=== PATIENT | female | born 1970 | race Caucasian/White ===

== ENCOUNTER 2016-08-04 19:19 | Emergency (ER) | payer MEDICAID, MEDICARE ==
[~2016-08-04] VITALS: Ht 172.7 cm; Wt 88.4 kg
[2016-08-04] MEDS ORDERED: SODIUM CHLORIDE 0.9% 1,000ML IVBOLUS ONE (20:00)
[2016-08-04] MEDS ORDERED: IBUPROFEN 200 MG TABLET PO ONE (20:00)
[2016-08-04] MEDS ORDERED: ALBUTEROL/IPRATROPIUM 2.5MG/0.5MG, 3 ML ONE ×2 (20:09→23:00)
[2016-08-04] MEDS: ALBUTEROL/IPRATROPIUM 2.5MG/0.5MG, 3 ML NPPB SCH ×2 (20:19→23:06)
[2016-08-04 20:44] LABS: BLOOD UREA NITROGEN 3 mg/dL (7-18)
[2016-08-04] MEDS ORDERED: IBUPROFEN 200 MG TABLET ONE (20:50)
[2016-08-04] MEDS ORDERED: CEFTRIAXONE PMX 1GM/50ML 50 ML IV ONE (21:30)
[2016-08-04] MEDS ORDERED: POTASSIUM CHLORIDE 10% 40 MEQ/30 ML UDC PO ONE (21:30)
[2016-08-04] MEDS ORDERED: AZITHROMYCIN 500 MG in SODIUM CHLORIDE 0.9% 250 ML IV ONE (21:30)
[2016-08-04] MEDS ORDERED: POTASSIUM CHLORIDE 20 MEQ TAB.ER.PRT ONE (21:39)
[2016-08-04] MEDS ORDERED: CEFTRIAXONE PMX 1GM/50ML 50 ML ONE (21:39)
[2016-08-04] MEDS ORDERED: ALPR1TAB2 PO (22:19)
[2016-08-04] MEDS ORDERED: AMPH20CA7 PO (22:19)
[2016-08-04] MEDS ORDERED: LAMO200T3 PO (22:19)
[2016-08-04] MEDS ORDERED: PREG25CA PO (22:19)
[2016-08-04] MEDS ORDERED: LURA20TA PO (22:19)
[2016-08-04] MEDS ORDERED: PREG75CA PO (22:19)
[2016-08-04] MEDS ORDERED: ZOLP-413 PO (22:19)
[2016-08-04 23:40] VITALS: BP 104/60
== END 2016-08-04 23:41 | disposition home or self-care (01) ==
LOC: ED 21:07
DX: J15.9 Unspecified bacterial pneumonia (principal); E11.9 Type 2 diabetes mellitus without complications; Z85.3 Personal history of malignant neoplasm of breast
CPT/HCPCS: 36415; 71020; 80048; 82040; 83605; 84145; 85025; 93005; 94640; 96361; 96365; 96367; 99285; J0456; J0696; J7030; J7050; J7620

== ENCOUNTER 2018-11-15 05:47 | Day surgery (SDC) | payer MEDICARE ==
[~2018-11-15] VITALS: Ht 170.2 cm; Wt 86.6 kg
[~2018-11-15 05:47] MED LIST: ALPR1TAB2 PO; AMPH20CA7 PO; LAMO200T3 PO; LURA20TA PO; PREG25CA PO; PREG75CA PO; ZOLP-413 PO
[2018-11-15] MEDS ORDERED: LACTATED RINGERS 1,000 ML IV SCH (06:09)
[2018-11-15 06:11] VITALS: BP 102/76
[2018-11-15 06:41] VITALS: BP 102/76
[2018-11-15] MEDS ORDERED: FENTANYL PF 250 MCG/5ML ONE (07:25)
[2018-11-15] MEDS ORDERED: MIDAZOLAM 1 MG/ML, 2ML ONE (07:25)
[2018-11-15] MEDS ORDERED: HALOPERIDOL 5 MG/ML IV PRN (08:00)
[2018-11-15] MEDS ORDERED: PROMETHAZINE 25 MG/ML, 1ML IV PRN (08:00)
[2018-11-15] MEDS ORDERED: FENTANYL PF 100 MCG/2ML IV PRN (08:00)
[2018-11-15] MEDS ORDERED: OXYcodone 5 MG/5 ML ORAL.SOL UDC PO PRN (08:00)
[2018-11-15] MEDS ORDERED: ACETAMINOPHEN 325 MG TABLET PO PRN (08:00)
[2018-11-15] MEDS ORDERED: HYDROmorphone 2 MG/ML, 1ML IVPush PRN (08:00)
[2018-11-15] MEDS ORDERED: MEPERIDINE/PF 25MG/ML,1ML IVPush PRN (08:00)
[2018-11-15] MEDS ORDERED: LORazepam 2 MG/ML, 1ML IVPush PRN (08:00)
[2018-11-15] MEDS ORDERED: hydrALAzine 20 MG/ML, 1ML IV PRN (08:00)
[2018-11-15] MEDS ORDERED: MEPERIDINE/PF 50 MG/ML ONE (08:11)
[2018-11-15] MEDS ORDERED: SUGAMMADEX 200 MG/2 ML IVPush ONE ×2 (08:31→08:43)
[2018-11-15] MEDS ORDERED: KETOROLAC 30 MG/1 ML ONE (08:36)
[2018-11-15] MEDS ORDERED: DEXAMETHASONE 4 MG/ML, 1ML ONE (08:43)
[2018-11-15] MEDS ORDERED: ONDANSETRON 2MG/ML, 2ML ONE (08:43)
[2018-11-15] MEDS ORDERED: PROPOFOL 10 MG/ML, 20ML ONE (08:43)
[2018-11-15] MEDS ORDERED: ROCURONIUM 10MG/ML,5ML ONE (08:43)
[2018-11-15] MEDS ORDERED: LIDOCAINE-MPF 2% ,5ML ONE (08:43)
[2018-11-15] MEDS ORDERED: OXYcodone 5 MG/5 ML ORAL.SOL UDC ONE (09:07)
[2018-11-15] MEDS ORDERED: FENTANYL PF 100 MCG/2ML ONE (09:07)
[2018-11-15] MEDS ORDERED: ACETAMINOPHEN 650 MG/20.3 ML UDC ONE (09:10)
== END 2018-11-15 12:20 | disposition home or self-care (01) ==
LOC: OUT 05:47
PROVIDERS: ATTEND Urology
DX: N20.0 Calculus of kidney (principal); E11.9 Type 2 diabetes mellitus without complications
CPT/HCPCS: 52356; 74018; 82360; 82962; 88300; C1758; C1769; C2617; J1100; J2175; J2250; J2405; J2704; J3010; J7120; 76000